=== PATIENT | female | born 1985 | race Caucasian/White ===

== ENCOUNTER → 2017-12-06 | Outpatient (CLI) | payer BC ==
--- NOTE | 2017-12-06 13:49 | Diagnostic Imaging Report ---
PROCEDURE: US Non-ob pelvis comp/trans. TECHNIQUE: Multiple realtime grayscale images were obtained of the pelvis in various projections endovaginally. Transabdominal imaging was also performed. INDICATION: Left lower quadrant pain. FINDINGS: The uterus measures 7.7 x 4.0 x 3.1 cm. Endometrium is 3 mm in thickness. No myometrial mass is seen. The right ovary measures 3.2 x 2.3 x 2.0 cm and the left ovary measures 3.6 x 2.1 x 2.3 cm. There is blood flow to both ovaries. No adnexal mass is seen. Small amount of free fluid is present, likely physiologic. IMPRESSION: Unremarkable pelvic ultrasound. Dictated by: Dictated on workstation # [id number]
== END ==
LOC: EDBD 12:38 → RAD 12:38
PROVIDERS: ATTEND Nurse Practitioner Family
DX: R10.32 Left lower quadrant pain (principal)
CPT/HCPCS: 76830; 76856

== ENCOUNTER → 2018-05-29 | Outpatient (CLI) | payer BC ==
--- NOTE | 2018-05-29 15:20 | Diagnostic Imaging Report ---
INDICATION: survey. TECHNIQUE: Multiple real-time grayscale images were obtained over the gravid uterus. COMPARISON: There are no prior studies available for comparison. FINDINGS: There is a single live fetus in variable presentation. heart motion was noted and a rate of 126 BPM was recorded. There were no abnormalities identified. However, the spine and four-chamber heart view were not optimally visualized. I would recommend that a short-term (4-6 week) followup exam be performed for further study. The placenta is anterior and there is no previa. The amniotic fluid volume is within normal limits. The cervix was identified and measures 6.1 cm in length. The growth parameters are fairly uniform. IMPRESSION: 1. There is a single live fetus at approximately 22 weeks 2 days gestation +/-2 weeks. The EDC is September 30, 2018. 2. There were no abnormalities identified, although the spine and four-chamber heart view were not optimally visualized. Recommendations, as above. 3. The growth parameters are fairly uniform. Biometrical measurements are as follows: Biparietal 5.35 cm, age 22 weeks 2 days. Head circumference 19.92 cm, age 22 weeks 1 days. Abdominal circumference 17.03 cm, age 22 weeks 1 days. Femur length 3.78 cm, age 22 weeks 1 days. Sonographic estimate age: 22 weeks 2 days. Sonographic estimated date of delivery: 09/30/2018. Estimated Weight: 472 gm (+/- 69 gm). LMP percentile: 70%. heart rate: 126 beats per minute. number: 1 of 1. Dictated by: Dictated on workstation # [id number]
== END ==
LOC: RAD 13:02
PROVIDERS: ATTEND Obstetrics & Gynecology
DX: Z36.89 Encounter for other specified antenatal screening (principal); Z3A.22 22 weeks gestation of pregnancy
CPT/HCPCS: 76805

== ENCOUNTER → 2018-09-04 | Outpatient (CLI) | payer BC ==
[~2018-09-04] MED LIST: ACET-77 PO; CALC-308 PO; DIBU30OI TOP; IBUP-844 PO; OMEG-160 PO; PREN-53 PO
[2018-10-09 23:06] LABS: URINE CREATININE FOR RATIO 30 MG/DL (30-125); URINE PROTEIN FOR RATIO ONLY < 6 MG/DL (6-12)
== END ==
LOC: LABNPT 17:00
PROVIDERS: ATTEND Obstetrics & Gynecology
DX: O13.3 Gestational [pregnancy-induced] hypertension without significant proteinuria, third trimester (principal)
CPT/HCPCS: 82570; 84156

== ENCOUNTER 2018-09-05 21:05 | Outpatient (CLI) | payer BC ==
[~2018-09-05] VITALS: Ht 175.3 cm; Wt 106.6 kg
--- NOTE | 2018-09-05 21:00 | NUR ---
SHELLI GUERRERO presented to unit via from ED, accompanied by S.O, with c/o LEAKING. SHELLI GUERRERO weighed, gowned, voided, and to bed. EFHM and TOCO applied, VS taken. SHELLI GUERRERO oriented to bed controls, call light, TV, heat, and A/C controls. Assessments to follow per this rn.
[2018-09-05] MEDS ORDERED: PREN-53 PO (21:30)
[2018-09-05] MEDS ORDERED: OMEG-160 PO (21:31)
[2018-09-05] MEDS ORDERED: CALC-308 PO (21:31)
[2018-09-05 21:52] VITALS: BP 139/85
--- NOTE | 2018-09-05 22:00 | NUR ---
Pt ambulatory off unit accompanied by s/o, no ss distress.
== END 2018-09-05 22:00 | disposition home or self-care (01) ==
LOC: WSo 21:05 → LDRP 21:05 → WSo 21:09
PROVIDERS: ATTEND Obstetrics & Gynecology
DX: Z03.71 Encounter for suspected problem with amniotic cavity and membrane ruled out (principal)
CPT/HCPCS: 99213

== ENCOUNTER → 2020-02-17 | Outpatient (CLI) | payer BC ==
[~2020-02-17] MED LIST changes: -ACET-77 PO; +ACET-78 PO
--- NOTE | 2020-02-17 17:46 | Diagnostic Imaging Report ---
Examination: Ultrasound pelvis. Date: February 17, 2020. Indication: 34-year-old female, right lower quadrant and suprapubic pain. Comparison: May 29, 2018. Technique: A sonogram of the pelvis was performed utilizing transabdominal and endovaginal approaches assessing sevilla-scale appearance and color Doppler flow. Findings: The uterus measures 7.8 x 3.8 x 4.9 cm. No focal uterine masses are seen. The endometrium measures 0.9 cm in diameter. The right ovary measures 3.6 cm x 2.2 cm x 2.5 cm. The left ovary measures 3.1 cm x 2.5 cm x 3.6 cm. There is a cystic lesion in the left adnexa measuring 2.2 x 2.6 x 1.9 cm in size with round internal peripherally echogenic foci. This appears to be likely arising from the left ovary. There is blood flow to both ovaries. No free pelvic fluid is demonstrated. Impression: 1. Complicated left ovarian cystic lesion which may relate to a complicated cyst. Ectopic is considered less likely as this likely is arising from the left ovary which would be an uncommon location for an ectopic . Correlation with laboratory values is recommended. 2. No free pelvic fluid. 3. Unremarkable appearance of the right ovary and uterus. Dictated by: Dictated on workstation # [id number]
== END ==
LOC: RAD 15:15
PROVIDERS: ATTEND Family Medicine
DX: N83.292 Other ovarian cyst, left side (principal)
CPT/HCPCS: 36415; 76830; 76856; 84702; 84703

== ENCOUNTER → 2021-01-13 | Outpatient (CLI) | payer BC ==
--- NOTE | 2021-01-13 15:36 | Diagnostic Imaging Report ---
INDICATION: survey. TECHNIQUE: Multiple real-time grayscale images were obtained over the gravid uterus. COMPARISON: None. FINDINGS: There is a single live fetus in a cephalic presentation. heart rate was recorded at 132 bpm. Placenta is anterior. Amniotic fluid volume is normal. survey shows kidneys, bladder and stomach to be unremarkable. brain is unremarkable. There is a four-chamber heart. There is a three-vessel cord with normal insertion. spine is unremarkable. Biometrical measurements are as follows: Biparietal 4.86 cm, age 20 weeks 5 days. Head circumference 17.71 cm, age 20 weeks 2 days. Abdominal circumference 15.30 cm, age 20 weeks 4 days. Femur length 3.21 cm, age 20 weeks 0 days. Sonographic estimate age: 20 weeks 3 days. Sonographic estimated date of delivery: 05/30/21. Estimated Weight: 344 gm (+/- 51 gm). LMP percentile: 84%. heart rate: 132 beats per minute. number: 1 of 1. IMPRESSION: Single live IUP 20 weeks 3 days gestational age. Estimated date of confinement sonographically is 05/30/2021. Dictated by: Dictated on workstation # [id number]
== END ==
LOC: RAD 12:00
PROVIDERS: ATTEND Obstetrics & Gynecology
DX: Z36.9 Encounter for antenatal screening, unspecified (principal); Z3A.20 20 weeks gestation of pregnancy
CPT/HCPCS: 76805

== ENCOUNTER 2021-05-25 16:29 | Inpatient (IN) | payer BC ==
[~2021-05-25] VITALS: Ht 175.3 cm; Wt 96.3 kg
[2021-05-25 16:57] VITALS: BP 132/94
[2021-05-25] MEDS ORDERED: LACTATED RINGERS 1,000 ML IV SCH (17:00)
[2021-05-25] MEDS ORDERED: MINERAL OIL 30 ML OIL TOP PRN (17:00)
[2021-05-25] MEDS ORDERED: TERBUTALINE INJ 1 MG/ML (BRETHINE) AMP SC PRN (17:00)
--- NOTE | 2021-05-25 17:12 | History & Physical-OB ---
OB - Chief Complaint & HPI Date/Time Date of Admission: Date of Admission: May 25, 2021 at 16:29 Date seen by a Provider: May 25, 2021 Time Seen by a Provider: 15:30 Chief Complaint/History OB-Reason for Admission/Chief: Induction of Labor Hx : 3 Hx Para: 1011 Expected Date of Delivery: Jun 05, 2021 Gestational Age in Weeks: 38 Gestational Age in Days: 2 Indication for induction: medical complication (gestational hypertension) Other reason for admission: Have been monitoring her blood pressures the last few weeks. 151/96 and 150/105 in clinic today. More edema today. no proteinuria. No headache or blurred vision. Sent to labor and delivery for induction. Admission Nurse Assessment Rev: Yes History of Labs A+/- HIV -\ HBsAg - Hep C - VDRL NR Rub I GBS - Allergies and Home Medications Allergies Coded Allergies: No Known Drug Allergies (Unverified , 09/16/18) Patient Home Medication List Home Medication List Reviewed: Yes Magnesium (Magnesium) 200 Mg Tablet, 800 MG PO DAILY, (Reported) Entered as Reported by: BENSON YOUNGBLOOD on 05/25/211750 Last Action: New Order [place]-3/Dha/Epa/Fish Oil (Fish Oil 1,000 mg Softgel) 1 Each Capsule, 1 EACH PO DAILY, (Reported) Entered as Reported by: KAYLEE SPARROW on 09/05/182130 Last Action: Reviewed Fck906/Iron Fumarate/FA/Dss ( 19 Tablet) 1 Each Tablet, 1 EACH PO DAILY, (Reported) Entered as Reported by: KAYLEE SPARROW on 09/05/182129 Last Action: Reviewed Vitamin D (Vitamin D3) 10 Mcg Tablet, 400 MCG PO DAILY, (Reported) Entered as Reported by: BENSON YOUNGBLOOD on 05/25/211751 Last Action: New Order Discontinued Medications Acetaminophen (Acetaminophen) 500 Mg Tablet, 1,000 MG PO Q8HR Discontinued Reason: No Longer Taking Prescribed by: KEVEN HINOJOSA on 09/19/18 0638 Last Action: Discontinued Calcium Carbonate (Calcium) 500 Mg Tab.chew, 500 MG PO DAILY, (Reported) Discontinued Reason: No Longer Taking Entered as Reported by: KAYLEE SPARROW on 09/05/182130 Last Action: Discontinued Dibucaine (Dibucaine) 30 Gm Oint, 0 GM TOP UD PRN for PAIN- SEE INSTRUCTIONS Discontinued Reason: No Longer Taking Prescribed by: KEVEN HINOJOSA on 09/19/18637 Last Action: Discontinued Ibuprofen (Ibu) 600 Mg Tablet, 600 MG PO Q6HR Discontinued Reason: No Longer Taking Prescribed by: KEVEN HINOJOSA on 09/19/18637 Last Action: Discontinued OB - History Hx of Present Ultrasounds: Normal mid trimester US Obstetrical Complications: Gestational Hypertension Medical Complications: None Information Induced Hypertension: Yes Maternal Gestational Diabetes: No Hemorrhage: No Obstetrical History Hx : 3 Hx Para: 1 Hx # Term Pregnancies: 1 Hx # Pregnancies: 0 Number of Living Children: 1 Hx Termination: No Hx Total # of Abortions (Spona: 1 Hx Multiple Gestation: No Hx Ectopic : No Hx Stillbirth: No Hx Complication: No Hx Induced Hypertens: Yes Hx Maternal Gestational Diabet: No Hx Hemorrhage: No Delivery History Hx Dystocia: No Hx Forceps Assisted Delivery: No Hx Vacuum Extraction Assisted: No Hx Placenta Abnormality: No Hx Distress: No Hx Large For Gestational Age I: No Hx Small for Gestational Age I: No Hx Section: No Hx Vaginal Delivery Post C-Sec: No Adverse Rxn to Tranfusion: No Patient Past Medical History hypertension Social History/Family History Alcohol Use: Denies Use Recreational Drug Use: No Smoking Cessation: Never smoker Immunizations Influenza Vaccine Up-to-Date: Yes; Up-to-Date (01/19) Hepatitis A: Yes Hepatitis B: Yes Tetanus Booster (TDap): Less than 5yrs (04/2021) Rubella: immune RPR/VDRL: Negative GBS Status: Negative HBsAG: Negative OB - Admission Exam Physical Exam HEENT: NCAT Heart: Rhythm Normal Lungs: Clear Abdomen: Gravid Extremities: Edema Reflexes: Hyperreflexia Present Cervical Dilatation: 4cm Effacement: 50% Station: Ballotable Membranes: Intact Heart Rate: 130's Accelerations: Accelerations Present Decelerations: No Decelerations Short Term Variability: Present Web Interface Developer Variability: Average (6-25) Contractions on Admission: >10 Minutes Apart OB - Assessment/Plan/Diagnosis Assessment Assessment: induction of labor Admission Dx 38 week gestation Gestational hypertension Rh - Admission Status: Inpatient Order (span 2 midnights) Reason for Inpatient Admission: labor Plan Plan: Induction Induction Method: per Misoprostol Protocol (anticipate Greg Carney) KEVEN HINOJOSA DO May 25, 2021 17:12
[2021-05-25 17:26] LABS: BASOPHILS # (AUTO) 0.1 10^3/uL (0.0-0.1); BASOPHILS % (AUTO) 0 % (0-10); EOSINOPHILS # (AUTO) 0.1 10^3/uL (0.0-0.3); EOSINOPHILS % (AUTO) 0 % (0-10); HEMATOCRIT 38 % (35-52); HEMOGLOBIN 12.6 g/dL (11.5-16.0); LYMPHOCYTES # (AUTO) 3.8 10^3/uL (1.0-4.0); LYMPHOCYTES % (AUTO) 22 % (12-44); MEAN CORPUSCULAR HEMOGLOBIN 29 pg (25-34); MEAN CORPUSCULAR HGB CONC 33 g/dL (32-36); MEAN CORPUSCULAR VOLUME 87 fL (80-99); MEAN PLATELET VOLUME 10.3 fL (9.0-12.2); MONOCYTES # (AUTO) 1.1 10^3/uL (0.0-1.0); MONOCYTES % (AUTO) 7 % (0-12); NEUTROPHILS % (AUTO) 70 % (42-75); PLATELET COUNT 259 10^3/uL (130-400); WHITE BLOOD COUNT 17.2 10^3/uL (4.3-11.0)
[2021-05-25 17:34] LABS: ALBUMIN 3.4 GM/DL (3.2-4.5)
[2021-05-25 17:35] LABS: POTASSIUM 3.9 MMOL/L (3.6-5.0)
[2021-05-25 17:35] LABS: BILIRUBIN,URINE NEGATIVE (NEGATIVE); CLARITY,URINE CLEAR; COLOR,URINE YELLOW; GLUCOSE, URINE (UA) NEGATIVE (NEGATIVE); KETONES,URINE NEGATIVE (NEGATIVE); LEUKOCYTE ESTERASE ,URINE NEGATIVE (NEGATIVE); NITRITE,URINE NEGATIVE (NEGATIVE); PROTEIN,URINE NEGATIVE (NEGATIVE)
[2021-05-25 17:36] LABS: CALCIUM 8.8 MG/DL (8.5-10.1)
[2021-05-25 17:37] LABS: TOTAL PROTEIN 6.7 GM/DL (6.4-8.2)
[2021-05-25 17:39] LABS: BILIRUBIN,TOTAL 0.2 MG/DL (0.1-1.0)
[2021-05-25 17:41] LABS: CREATININE SERUM 0.82 MG/DL (0.60-1.30)
[2021-05-25 17:44] LABS: URIC ACID 5.1 MG/DL (2.6-7.2)
[2021-05-25 17:46] LABS: BACTERIA,URINE TRACE /HPF; SQUAMOUS EPITHELIAL CELL,UR 0-2 /HPF; URINE CREATININE FOR RATIO 14 MG/DL (30-125)
[2021-05-25 17:47] LABS: BAND NEUTROPHILS 0 %; BASOPHILS % (MANUAL) 0 %; EOSINOPHILS % (MANUAL) 1 %; LYMPHOCYTES % (MANUAL) 25 %; MONOCYTES % (MANUAL) 8 %; NEUTROPHILS % (MANUAL) 66 %; RBC MORPH NORMAL
[2021-05-25 17:47] LABS: URINE PROTEIN FOR RATIO ONLY < 6 MG/DL (6-12)
[2021-05-25] MEDS ORDERED: MAGN200T PO (17:51)
[2021-05-25] MEDS ORDERED: NF-VITD400 PO (17:52)
[2021-05-25] MEDS: D5 LR IV SOLUTION 1,000 ML IV SCH (18:48)
[2021-05-25] MEDS ORDERED: CATHETER FLUSH 10 ML SYR IV SCH (22:00)
[2021-05-26] VITALS (65 sets, daily range): BP systolic 96–180; BP diastolic 53–125
[2021-05-26] MEDS: D5 LR IV SOLUTION 1,000 ML IV SCH ×3 (02:59→19:00)
--- NOTE | 2021-05-26 08:44 | OB Triage Report ---
Standard Progress Note Progress Notes/Assess & Plan Date Seen by a Provider: May 26, 2021 Time Seen by a Provider: 08:30 Expected Date of Delivery: Jun 05, 2021 Gestational Age in Weeks: 38 Gestational Age in Days: 3 LMP/HELEN Comment: Induction due to hypertension at 38 + weeks Progress/Assessment & Plan admitted from clinic yesterday due to elevated blood pressures at term. BP in the office 150/100 and 142/105 VS - Last 72 Hours, by Label 05/25/21 05/26/21 05/26/21 16:57 02:30 06:07 Temp 37.0 36.6 36.8 Pulse 100 81 78 Resp 16 16 B/P (MAP) 132/94 (107) 141/93 (109) 132/73 (92) O2 Delivery Room Air Laboratory Tests Test 05/25/21 17:05 05/25/21 17:20 Range/Units White Blood Count 17.2 H 4.3-11.0 10^3/uL Red Blood Count 4.36 3.80-5.11 10^6/uL Hemoglobin 12.6 11.5-16.0 g/dL Hematocrit 38 35-52 % Mean Corpuscular Volume 87 80-99 fL Mean Corpuscular Hemoglobin 29 25-34 pg Mean Corpuscular Hemoglobin Concent 33 32-36 g/dL Red Cell Distribution Width 12.3 10.0-14.5 % Platelet Count 259 130-400 10^3/uL Mean Platelet Volume 10.3 9.0-12.2 fL Immature Granulocyte % (Auto) 1 % Neutrophils (%) (Auto) 70 42-75 % Lymphocytes (%) (Auto) 22 12-44 % Monocytes (%) (Auto) 7 0-12 % Eosinophils (%) (Auto) 0 0-10 % Basophils (%) (Auto) 0 0-10 % Neutrophils # (Auto) 12.0 H 1.8-7.8 10^3/uL Lymphocytes # (Auto) 3.8 1.0-4.0 10^3/uL Monocytes # (Auto) 1.1 H 0.0-1.0 10^3/uL Eosinophils # (Auto) 0.1 0.0-0.3 10^3/uL Basophils # (Auto) 0.1 0.0-0.1 10^3/uL Immature Granulocyte # (Auto) 0.1 0.0-0.1 10^3/uL Neutrophils % (Manual) 66 % Lymphocytes % (Manual) 25 % Monocytes % (Manual) 8 % Eosinophils % (Manual) 1 % Basophils % (Manual) 0 % Band Neutrophils 0 % Blood Morphology Comment NORMAL Sodium Level 138 135-145 MMOL/L Potassium Level 3.9 3.6-5.0 MMOL/L Chloride Level 108 H 98-107 MMOL/L Carbon Dioxide Level 17 L 21-32 MMOL/L Anion Gap 13 5-14 MMOL/L Blood Urea Nitrogen 10 7-18 MG/DL Creatinine 0.82 0.60-1.30 MG/DL Estimat Glomerular Filtration Rate 97 BUN/Creatinine Ratio 12 Glucose Level 107 H 70-105 MG/DL Uric Acid 5.1 2.6-7.2 MG/DL Calcium Level 8.8 8.5-10.1 MG/DL Corrected Calcium 9.3 8.5-10.1 MG/DL Total Bilirubin 0.2 0.1-1.0 MG/DL Aspartate Amino Transf (AST/SGOT) 23 5-34 U/L Alanine Aminotransferase (ALT/SGPT) 17 0-55 U/L Alkaline Phosphatase 106 40-136 U/L Lactate Dehydrogenase 205 125-220 U/L Total Protein 6.7 6.4-8.2 GM/DL Albumin 3.4 3.2-4.5 GM/DL Urine Color YELLOW Urine Clarity CLEAR Urine pH 6.0 5-9 Urine Specific [place] <=1.005 1.016-1.022 Urine Protein NEGATIVE NEGATIVE Urine Glucose (UA) NEGATIVE NEGATIVE Urine Ketones NEGATIVE NEGATIVE Urine Nitrite NEGATIVE NEGATIVE Urine Bilirubin NEGATIVE NEGATIVE Urine Urobilinogen 0.2 < = 1.0 MG/DL Urine Leukocyte Esterase NEGATIVE NEGATIVE Urine RBC (Auto) NEGATIVE NEGATIVE Urine RBC NONE /HPF Urine WBC NONE /HPF Urine Squamous Epithelial Cells 0-2 /HPF Urine Crystals NONE /LPF Urine Bacteria TRACE /HPF Urine Casts NONE /LPF Urine Mucus NEGATIVE /LPF Urine Culture Indicated NO Urine Creatinine 14 L 30-125 MG/DL Urine Protein/Creatinine Ratio Received misoprostol x 1, (50 mcg) and then was sendy regularly so no additional dose was given. She has walked and has done well. Currently rare contractions category 1 strip SVE 4-5/50/-2 but anterior. and head is applied (was posterior and not applied yesterday) AROM, clear Plan augmentation as indicated. Epidural when desired Anticipate Final Diagnosis 38 week gestation gestational hypertension KEVEN HINOJOSA DO May 26, 2021 08:44
[2021-05-26] MEDS ORDERED: OXYTOCIN PRE-MIX DRIP 500 ML IV SCH ×2 (11:00→15:15)
[2021-05-26] MEDS ORDERED: fentaNYL 2 mcg/ml BUPIVA 0.125 100 ML ONE (12:06)
[2021-05-26] MEDS ORDERED: BUPIVACAINE 0.25% 30 ML (SENSORCAINE) VIAL ONE (12:43)
[2021-05-26] MEDS ORDERED: fentaNYL INJ 100 MCG/2 ML AMP ONE (12:43)
[2021-05-26] MEDS ORDERED: EPIDURAL (fentaNYL 2 MCG/ML BUPIVA 0.125%)100 ML BAG EPI PRN (12:45)
[2021-05-26] MEDS ORDERED: NALOXONE 0.4 MG/ML 1 ML (NARCAN) VIAL IV PRN ×2 (12:45→15:15)
[2021-05-26] MEDS ORDERED: LACTATED RINGERS 1,000 ML IV SCH (12:45)
[2021-05-26] MEDS ORDERED: ONDANSETRON 4 MG/2 ML (SDV) Z0FRAN IV PRN (12:45)
[2021-05-26] MEDS ORDERED: diphenhydrAMINE 50 MG/ML INJ (BENADRYL) IV PRN (12:45)
[2021-05-26] MEDS ORDERED: LIDOCAINE 1% INJ 50 ML (XYLOCAINE) VIAL ONE (14:36)
[2021-05-26] MEDS ORDERED: LIDOCAINE/EPI 2% 1:200,00 (XYLOCAINE) 10 ML VIAL ONE (14:37)
[2021-05-26] MEDS ORDERED: IBUP-844 PO (15:06)
[2021-05-26] MEDS ORDERED: ACET-93 PO (15:06)
--- NOTE | 2021-05-26 15:07 | Discharge Inst-Women's Service ---
Discharge Inst-Women's Serv Depart Medication/Instructions New, Converted or Re-Newed RX: Transmitted to Pharmacy Final Diagnosis gestational hypertension 38 week gestation Problems Reviewed?: Yes Consults/Follow Up Additional Follow Up: Yes (6 weeks ) Activity Activity: Activity as Tolerated Driving Instructions: You May Drive NO SMOKING: NO SMOKING Nothing Inside Vagina: No Douching, No [place], No Tampons Diet Discharge Diet: No Restrictions Symptoms to Report to : Swelling Increased, Bleeding Excessive, Pain Increased, Fever Over 101 Degrees F, Vaginal Bleeding Increase, Cramps in Feet or Legs, Vaginal Discharge Foul For Any Problems or Questions: Contact Your Physician KEVEN HINOJOSA DO May 26, 2021 15:07
[2021-05-26] MEDS ORDERED: BENZOCAINE/MENTHOL (DERMOPLAST) 56 ML CAN TP PRN (15:15)
[2021-05-26] MEDS ORDERED: WITCH HAZEL(TUCKS) 40 EA JAR TOP PRN (15:15)
[2021-05-26] MEDS ORDERED: MEASLES,MUMPS,RUBELLA 1 EA INJ SQ ONE (15:15)
[2021-05-26] MEDS ORDERED: TETANUS,DIPTH,PERTUSS P/F (BOOSTRIX) 0.5 ML VIAL IM ONE (15:15)
[2021-05-26] MEDS: ZOLPIDEM 5 MG (AMBIEN) TAB PO SCH ×2 (19:47→21:00)
[2021-05-26] MEDS: IBUPROFEN 600 MG (MOTRIN) TAB PO SCH (21:01)
[2021-05-26] MEDS: DOCUSATE SODIUM 100 MG (COLACE) CAP PO SCH (21:01)
[2021-05-26] MEDS ORDERED: CATHETER FLUSH 10 ML SYR IV SCH (22:00)
[2021-05-26] MEDS: ACETAMINOPHEN 500 MG TAB (TYLENOL) PO SCH (22:00)
[2021-05-27 02:00] VITALS: BP 140/81
[2021-05-27] MEDS: IBUPROFEN 600 MG (MOTRIN) TAB PO SCH ×4 (04:27→21:02)
[2021-05-27 05:00] VITALS: BP 147/84
[2021-05-27 05:29] LABS: BASOPHILS % (AUTO) 0 % (0-10); EOSINOPHILS # (AUTO) 0.1 10^3/uL (0.0-0.3); EOSINOPHILS % (AUTO) 1 % (0-10); HEMATOCRIT 33 % (35-52); HEMOGLOBIN 10.8 g/dL (11.5-16.0); LYMPHOCYTES # (AUTO) 4.5 10^3/uL (1.0-4.0); LYMPHOCYTES % (AUTO) 29 % (12-44); MEAN CORPUSCULAR HEMOGLOBIN 30 pg (25-34); MEAN CORPUSCULAR HGB CONC 33 g/dL (32-36); MEAN CORPUSCULAR VOLUME 90 fL (80-99); MEAN PLATELET VOLUME 10.3 fL (9.0-12.2); MONOCYTES % (AUTO) 7 % (0-12); NEUTROPHILS # (AUTO) 9.7 10^3/uL (1.8-7.8); NEUTROPHILS % (AUTO) 63 % (42-75); PLATELET COUNT 199 10^3/uL (130-400); WHITE BLOOD COUNT 15.5 10^3/uL (4.3-11.0)
[2021-05-27 09:00] VITALS: BP 136/78
[2021-05-27] MEDS: FERROUS SULF 325 MG (IRON) TAB PO SCH (09:04)
[2021-05-27] MEDS: DOCUSATE SODIUM 100 MG (COLACE) CAP PO SCH ×2 (09:04→21:02)
[2021-05-27] MEDS: ACETAMINOPHEN 500 MG TAB (TYLENOL) PO SCH ×2 (09:05→17:31)
[2021-05-27] MEDS: PRENATAL VITAMIN 1 EA TAB PO SCH (09:05)
[2021-05-27] MEDS ORDERED: MEASLES,MUMPS,RUBELLA 1 EA INJ ONE (09:14)
--- NOTE | 2021-05-27 10:50 | Postpartum Progress Note ---
Note Note Day # 1 Subjective: Patient is without complaints. Ambulating, voiding. Tolerating a regular diet without nausea or vomiting. Normal lochia. Pain is well controlled with oral pain medications. She is , pumping and bottlfeeding. Objective: Vital Signs 05/26/21 05/27/21 14:36 05:00 Temp 36.8 Pulse 71 Resp 18 B/P (MAP) 147/84 (105) Pulse Ox 98 O2 Delivery Room Air O2 Flow Rate 15.00 Physical Exam: General - Alert and oriented, no apparent distress Abdomen - Soft, appropriately tender to palpation, non-distended, fundus firm at umbilicus Extremities - No edema, negative Jessie's bilaterally Assessment: Post- day # 1, status post vaginal delivery due to gestational hypertension. Recovering well, hemodynamically stable Plan: Routine care. GHTN: BP range is the followin-147/66-83. Will continue to monitor and consider starting labetalol 100mg BID to control blood pressures in period. VMI, Circ desired. Encourage breast feeding. Heme: Preop hgb 12.6 --> postop hgb 10.8. Vitals stable. No s/s of anemia. Ferrous sulfate supplementation. VTE ppx: Encourage ambulation. Plan for discharge tomorrow. Vitals - Labs Vital Signs - I&O Vital Signs Date Time Temp Pulse Resp B/P (MAP) Pulse Ox O2 Delivery O2 Flow Rate FiO2 05/27/21 05:00 36.8 71 18 147/84 (105) 98 Room Air 05/27/21 02:00 36.5 72 18 140/81 (100) 97 Room Air 05/26/21 21:00 36.8 99 18 156/88 (110) 97 Room Air 05/26/21 17:03 36.7 76 18 137/83 (101) Room Air 05/26/21 16:37 96 18 104/57 (73) Room Air 05/26/21 16:06 76 18 143/74 (97) Room Air 05/26/21 15:30 36.6 88 18 171/69 (103) Room Air 05/26/21 15:27 86 18 143/79 (100) Room Air 05/26/21 15:23 36.9 87 18 131/62 (85) Room Air 05/26/21 15:20 89 18 132/57 (82) Room Air 05/26/21 15:16 96 18 168/92 (117) Room Air 05/26/21 15:10 98 18 180/125 (143) Room Air 05/26/21 15:04 117 18 122/71 (88) Room Air 05/26/21 14:58 98 18 143/68 (93) Room Air 05/26/21 14:55 96 18 154/74 (100) Room Air 05/26/21 14:52 36.5 103 18 155/75 (101) Room Air 05/26/21 14:49 110 18 152/67 (95) Room Air 05/26/21 14:36 114 18 155/97 (116) Non Rebreather 15.00 05/26/21 14:33 100 18 147/90 (109) Non Rebreather 15.00 05/26/21 14:30 102 18 135/89 (104) Non Rebreather 15.00 05/26/21 14:28 96 18 143/85 (104) 91 Non Rebreather 15.00 05/26/21 14:24 99 18 170/98 (122) 100 Non Rebreather 15.00 05/26/21 14:22 91 18 139/78 (98) 100 Non Rebreather 15.00 05/26/21 14:19 87 18 156/89 (111) 100 Non Rebreather 15.00 05/26/21 14:16 65 18 132/80 (97) Non Rebreather 15.00 05/26/21 14:13 66 18 128/78 (95) 100 Non Rebreather 15.00 05/26/21 14:10 69 18 135/79 (97) Non Rebreather 15.00 05/26/21 14:07 70 18 132/77 (95) 100 Non Rebreather 15.00 05/26/21 14:04 71 18 134/85 (101) 100 Non Rebreather 15.00 05/26/21 14:01 69 18 132/83 (99) Non Rebreather 15.00 05/26/21 13:58 35.5 78 18 137/87 (104) 100 Non Rebreather 15.00 05/26/21 13:54 75 18 136/80 (98) 100 Non Rebreather 15.00 05/26/21 13:51 91 18 132/78 (96) 100 Non Rebreather 15.00 05/26/21 13:40 71 18 119/63 (81) 100 Non Rebreather 15.00 05/26/21 13:36 82 18 107/59 (75) 100 Non Rebreather 15.00 05/26/21 13:33 59 18 107/60 (76) 100 Non Rebreather 15.00 05/26/21 13:30 60 18 113/61 (78) 100 Non Rebreather 15.00 05/26/21 13:27 82 18 131/70 (90) 100 Non Rebreather 15.00 05/26/21 13:25 81 18 131/70 (90) Non Rebreather 15.00 05/26/21 13:22 87 18 115/59 (77) 100 Non Rebreather 15.00 05/26/21 13:17 56 18 99/58 (72) Room Air 05/26/21 13:15 59 18 99/55 (70) 100 Room Air 05/26/21 13:12 60 18 96/53 (67) 100 Room Air 05/26/21 13:10 69 18 110/57 (74) Room Air 05/26/21 13:07 69 18 119/76 (90) 100 Room Air 05/26/21 13:02 89 18 126/80 (95) 100 Room Air 05/26/21 12:57 86 18 168/85 (112) 100 Room Air 05/26/21 12:54 77 18 160/69 (99) 100 Room Air 05/26/21 12:40 36.5 89 18 172/89 (116) 100 Room Air 05/26/21 12:24 76 18 156/110 (125) Room Air 05/26/21 12:07 70 18 143/95 (111) Room Air 05/26/21 11:54 73 18 151/93 (112) Room Air 05/26/21 11:39 72 18 137/93 (108) Room Air 05/26/21 11:24 73 18 129/82 (98) Room Air 05/26/21 11:08 70 18 125/81 (96) Room Air 05/26/21 10:53 65 18 127/83 (98) Room Air I & O 05/27/21 07:00 Intake Total 3750 ml Balance 3750 ml Labs Laboratory Tests 05/27/21 05:13: White Blood Count 15.5H, Red Blood Count 3.64L, Hemoglobin 10.8L, Hematocrit 33L , Mean Corpuscular Volume 90, Mean Corpuscular Hemoglobin 30, Mean Corpuscular Hemoglobin Concent 33, Red Cell Distribution Width 12.3, Platelet Count 199, Mean Platelet Volume 10.3, Immature Granulocyte % (Auto) 1, Neutrophils (%) (Auto) 63, Lymphocytes (%) (Auto) 29, Monocytes (%) (Auto) 7, Eosinophils (%) (Auto) 1, Basophils (%) (Auto) 0, Neutrophils # (Auto) 9.7H, Lymphocytes # (Auto) 4.5H, Monocytes # (Auto) 1.0, Eosinophils # (Auto) 0.1, Basophils # (Auto) 0.0, Immature Granulocyte # (Auto) 0.1 Microbiology 05/25/21 Urine Culture - Preliminary, Resulted Slight Growth Present ELSA SILVERIO MD May 27, 2021 10:50
[2021-05-27] MEDS ORDERED: NORE0.3536 PO (10:51)
--- NOTE | 2021-05-27 11:46 | Anesthesia-Regional Post-Op ---
Regional Patient Condition Mental Status: Alert, Oriented x3 Circulation: Same as Pre-Op Headache: Absent Sensation: Full Recovery Motor Block: Absent Post Op Complications Complications None Follow Up Care/Instructions Patient Instructions None needed. Anesthesia/Patient Condition Patient is doing well, no complaints, stable vital signs, no apparent adverse anesthesia problems. No complications reported per nursing. D/C home per [facility] [place] Criteria: Yes WAYLON NEVAREZ CRNA May 27, 2021 11:46
[2021-05-27 12:10] VITALS: BP 145/80
[2021-05-27 17:29] VITALS: BP 157/82
[2021-05-27 21:05] VITALS: BP 147/81
[2021-05-27] MEDS: ZOLPIDEM 5 MG (AMBIEN) TAB PO SCH (21:58)
[2021-05-28 02:30] VITALS: BP 154/94
[2021-05-28] MEDS: ACETAMINOPHEN 500 MG TAB (TYLENOL) PO SCH (06:35)
[2021-05-28] MEDS: PRENATAL VITAMIN 1 EA TAB PO SCH (06:35)
[2021-05-28] MEDS: IBUPROFEN 600 MG (MOTRIN) TAB PO SCH ×2 (06:35→13:02)
[2021-05-28 09:07] VITALS: BP 158/104
[2021-05-28] MEDS: FERROUS SULF 325 MG (IRON) TAB PO SCH (09:09)
[2021-05-28] MEDS: DOCUSATE SODIUM 100 MG (COLACE) CAP PO SCH (09:10)
[2021-05-28] MEDS ORDERED: LABETALOL 200 MG (NORMODYNE) TAB PO NR (09:15)
--- NOTE | 2021-05-28 10:11 | Postpartum Progress Note ---
Note Note Day # 2 Subjective: Patient is without complaints. Ambulating, voiding. Tolerating a regular diet without nausea or vomiting. Normal lochia. Pain is well controlled with oral pain medications. , bottlefeeding and pumping. She denies ROJAS, blurry vision, SOB, chest pain, and RUQ abdominal pain. She anticipates discharge home today. Objective: VS - Last 72 Hours, by Label 05/25/21 05/26/21 05/26/21 05/26/21 16:57 02:30 06:07 08:36 Temp 37.0 36.6 36.8 37.0 Pulse 100 81 78 83 Resp 16 16 18 B/P (MAP) 132/94 (107) 141/93 (109) 132/73 (92) 140/83 (102) O2 Delivery Room Air Room Air 05/26/21 05/26/21 05/26/21 05/26/21 08:53 09:08 09:23 09:38 Pulse 84 96 69 66 Resp 18 18 18 18 B/P (MAP) 134/79 (97) 124/73 (90) 132/83 (99) 133/79 (97) O2 Delivery Room Air Room Air Room Air Room Air 05/26/21 05/26/21 05/26/21 05/26/21 09:54 10:08 10:23 10:38 Pulse 68 67 75 Resp 18 18 18 18 B/P (MAP) 109/66 (80) 101/59 (73) 127/78 (94) 131/80 (97) O2 Delivery Room Air Room Air Room Air Room Air 05/26/21 05/26/21 05/26/21 05/26/21 10:53 11:08 11:24 11:39 Pulse 65 70 73 72 Resp 18 18 18 18 B/P (MAP) 127/83 (98) 125/81 (96) 129/82 (98) 137/93 (108) O2 Delivery Room Air Room Air Room Air Room Air 05/26/21 05/26/21 05/26/21 05/26/21 11:54 12:07 12:24 12:40 Temp 36.5 Pulse 73 70 76 89 Resp 18 18 18 18 B/P (MAP) 151/93 (112) 143/95 (111) 156/110 (125) 172/89 (116) Pulse Ox 100 O2 Delivery Room Air Room Air Room Air Room Air 05/26/21 05/26/21 05/26/21 05/26/21 12:54 12:57 13:02 13:07 Pulse 77 86 89 69 Resp 18 18 18 18 B/P (MAP) 160/69 (99) 168/85 (112) 126/80 (95) 119/76 (90) Pulse Ox 100 100 100 100 O2 Delivery Room Air Room Air Room Air Room Air 05/26/21 05/26/21 05/26/21 05/26/21 13:10 13:12 13:15 13:17 Pulse 69 60 59 56 Resp 18 18 18 18 B/P (MAP) 110/57 (74) 96/53 (67) 99/55 (70) 99/58 (72) Pulse Ox 100 100 O2 Delivery Room Air Room Air Room Air Room Air 05/26/21 05/26/21 05/26/21 05/26/21 13:22 13:25 13:27 13:30 Pulse 87 81 82 60 Resp 18 18 18 18 B/P (MAP) 115/59 (77) 131/70 (90) 131/70 (90) 113/61 (78) Pulse Ox 100 100 100 O2 Delivery Non Rebreather Non Rebreather Non Rebreather Non Rebreather O2 Flow Rate 15.00 15.00 15.00 15.00 05/26/21 05/26/21 05/26/21 05/26/21 13:33 13:36 13:40 13:51 Pulse 59 82 71 91 Resp 18 18 18 18 B/P (MAP) 107/60 (76) 107/59 (75) 119/63 (81) 132/78 (96) Pulse Ox 100 100 100 100 O2 Delivery Non Rebreather Non Rebreather Non Rebreather Non Rebreather O2 Flow Rate 15.00 15.00 15.00 15.00 05/26/21 05/26/21 05/26/21 05/26/21 13:54 13:58 14:01 14:04 Temp 35.5 Pulse 75 78 69 71 Resp 18 18 18 18 B/P (MAP) 136/80 (98) 137/87 (104) 132/83 (99) 134/85 (101) Pulse Ox 100 100 100 O2 Delivery Non Rebreather Non Rebreather Non Rebreather Non Rebreather O2 Flow Rate 15.00 15.00 15.00 15.00 05/26/21 05/26/21 05/26/21 05/26/21 14:07 14:10 14:13 14:16 Pulse 70 69 66 65 Resp 18 18 18 18 B/P (MAP) 132/77 (95) 135/79 (97) 128/78 (95) 132/80 (97) Pulse Ox 100 100 O2 Delivery Non Rebreather Non Rebreather Non Rebreather Non Rebreather O2 Flow Rate 15.00 15.00 15.00 15.00 05/26/21 05/26/21 05/26/21 05/26/21 14:19 14:22 14:24 14:28 Pulse 87 91 99 96 Resp 18 18 18 18 B/P (MAP) 156/89 (111) 139/78 (98) 170/98 (122) 143/85 (104) Pulse Ox 100 100 100 91 O2 Delivery Non Rebreather Non Rebreather Non Rebreather Non Rebreather O2 Flow Rate 15.00 15.00 15.00 15.00 05/26/21 05/26/21 05/26/21 05/26/21 14:30 14:33 14:36 14:49 Pulse 102 100 114 110 Resp 18 18 18 18 B/P (MAP) 135/89 (104) 147/90 (109) 155/97 (116) 152/67 (95) O2 Delivery Non Rebreather Non Rebreather Non Rebreather Room Air O2 Flow Rate 15.00 15.00 15.00 05/26/21 05/26/21 05/26/21 05/26/21 14:52 14:55 14:58 15:04 Temp 36.5 Pulse 103 96 98 117 Resp 18 18 18 18 B/P (MAP) 155/75 (101) 154/74 (100) 143/68 (93) 122/71 (88) O2 Delivery Room Air Room Air Room Air Room Air 05/26/21 05/26/21 05/26/21 05/26/21 15:10 15:16 15:20 15:23 Temp 36.9 Pulse 98 96 89 87 Resp 18 18 18 18 B/P (MAP) 180/125 (143) 168/92 (117) 132/57 (82) 131/62 (85) O2 Delivery Room Air Room Air Room Air Room Air 05/26/21 05/26/21 05/26/21 05/26/21 15:27 15:30 16:06 16:37 Temp 36.6 Pulse 86 88 76 96 Resp 18 18 18 18 B/P (MAP) 143/79 (100) 171/69 (103) 143/74 (97) 104/57 (73) O2 Delivery Room Air Room Air Room Air Room Air 05/26/21 05/26/21 05/27/21 05/27/21 17:03 21:00 02:00 05:00 Temp 36.7 36.8 36.5 36.8 Pulse 76 99 72 71 Resp 18 18 18 18 B/P (MAP) 137/83 (101) 156/88 (110) 140/81 (100) 147/84 (105) Pulse Ox 97 97 98 O2 Delivery Room Air Room Air Room Air Room Air 05/27/21 05/27/21 05/27/21 05/27/21 09:00 12:10 17:29 21:05 Temp 36.4 36.7 36.5 36.9 Pulse 75 74 79 68 Resp 18 18 18 18 B/P (MAP) 136/78 (97) 145/80 (101) 157/82 (107) 147/81 (103) Pulse Ox 98 98 97 O2 Delivery Room Air Room Air Room Air Room Air 05/28/21 05/28/21 02:30 09:07 Temp 36.9 36.4 Pulse 66 75 Resp 18 18 B/P (MAP) 154/94 (114) 158/104 (122) Pulse Ox 98 98 O2 Delivery Room Air Room Air BP range: 136-158/81-104, mostly 150s/90s Physical Exam: General - Alert and oriented, no apparent distress Abdomen - Soft, appropriately tender to palpation, non-distended, fundus firm at umbilicus Extremities - no edema, negative Jessie's bilaterally Assessment: [] post- day # [], status post [] vaginal delivery. Recovering well, hemodynamically stable Plan: Routine care. GHTN: BP range is the followin-158/81-104, mostly 150s/90s. Will start labetalol 100mg now with plans for BID dosing. Will increase to 200mg BID if patient's BP do not improve prior to discharge. PreE precautions reviewed. VMI, Circ completed. Encourage breast feeding. Heme: Preop hgb 12.6 --> postop hgb 10.8. Vitals stable. No s/s of anemia. F errous sulfate supplementation. VTE ppx: Encourage ambulation. Plan for discharge today with plans for BP check in 1 week. Appropriate precautions reviewed. Vitals - Labs Vital Signs - I&O Vital Signs Date Time Temp Pulse Resp B/P (MAP) Pulse Ox O2 Delivery O2 Flow Rate FiO2 05/28/21 09:07 36.4 75 18 158/104 (122) 98 Room Air 05/28/21 02:30 36.9 66 18 154/94 (114) 98 Room Air 05/27/21 21:05 36.9 68 18 147/81 (103) 97 Room Air 05/27/21 17:29 36.5 79 18 157/82 (107) Room Air 05/27/21 12:10 36.7 74 18 145/80 (101) 98 Room Air Labs Microbiology 05/25/21 Urine Culture - Final, Complete Lactobacillus species ELSA SILVERIO MD May 28, 2021 10:11
--- NOTE | 2021-05-28 10:18 | Short Stay Summary ---
Discharge Summary Hospital Course Was the Problem List Reviewed?: Yes Final Diagnosis: care following vaginal delivery Hospital Course Date of Admission: May 25, 2021 at 16:29 Admission Diagnosis : Family Physician/Provider: Gaby Watson DO Date of Discharge: 05/28/21 Discharge Diagnosis: care following vagina delivery, Gestational Hypertension, 38 weeks gestation Hospital Course: Nikki Colón is a 35 yo s/p who presented at 38w2d for IOL due to gestational hypertension. She delivered a viable male infant and tolerated the procedure well. Her course has been complicated by mildly elevated blood pressures requiring anti-hypertensive medication (labetalol 200mg BID) with adequate control of her blood pressures. She has had no symptoms of preeclampsia in the period. Her course was also complicated by acute blood loss anemia following her delivery that required FeSO4 supplementation. She was discharged home on PPD#2 in stable condition, meeting all milestones. She was breast and bottlefeeding prior to discharge and opted to start POPs at discharge. She is to follow-up in 1 week for a BP check in the office. Labs and Pending Lab Test: Microbiology 05/25/21 Urine Culture - Final, Complete Lactobacillus species Home Meds Active Ortho Micronor (Norethindrone) 0.35 Mg Tablet 0.35 Mg PO DAILY 30 Days Acetaminophen 500 Mg Tablet 1,000 Mg PO Q8HR Ibu (Ibuprofen) 600 Mg Tablet 600 Mg PO Q6HR Reported Vitamin D3 (Vitamin D) 10 Mcg Tablet 400 Mcg PO DAILY Magnesium 200 Mg Tablet 800 Mg PO DAILY Fish Oil 1,000 mg Softgel (Unity-3/Dha/Epa/Fish Oil) 1 Each Capsule 1 Each PO DAILY 19 Tablet (Ugx495/Iron Fumarate/FA/Dss) 1 Each Tablet 1 Each PO DAILY Assessment/Pt Instructions Patient is to follow-up in office in 1 week for a blood pressure check. Please see hospital course. Discharge Instructions Discharge Diet: No Restrictions Discharge Physical Examination Allergies: Coded Allergies: No Known Drug Allergies (Unverified , 09/16/18) Discharge Summary Date of Admission May 25, 2021 at 16:29 Date of Discharge ELSA SILVERIO MD May 28, 2021 10:18
[2021-05-28 10:40] VITALS: BP 152/88
[2021-05-28] MEDS ORDERED: LABETALOL 200 MG (NORMODYNE) TAB PO ONE (11:00)
[2021-05-28 12:09] VITALS: BP 141/81
[2021-05-28] MEDS ORDERED: LABE200T7 PO (12:40)
== END 2021-05-28 13:25 | disposition home or self-care (01) | DRG 806 ==
LOC: LDRP 16:29
PROVIDERS: ADMIT Obstetrics & Gynecology; ATTEND Obstetrics & Gynecology
PROC: 3E0DXGC Introduction of Other Therapeutic Substance into Mouth and Pharynx, External Approach (ICD-10-PCS; 2021-05-25)
PROC: 10E0XZZ Delivery of Products of Conception, External Approach (ICD-10-PCS; principal; 2021-05-26)
DX: O13.4 Gestational [pregnancy-induced] hypertension without significant proteinuria, complicating childbirth (principal); D62 Acute posthemorrhagic anemia; Z37.0 Single live birth; O90.81 Anemia of the puerperium; Z3A.38 38 weeks gestation of pregnancy; Z23 Encounter for immunization
CPT/HCPCS: 36415; 80053; 81000; 82570; 83615; 84156; 84550; 85007; 85025; 85027; 86850; 86900; 86901; 87088; 90707

== ENCOUNTER → 2022-01-26 | Outpatient (CLI) | payer BC ==
[~2022-01-26] MED LIST changes: +ACET-93 PO; +LABE200T10 PO; +MAGN200T PO; +NF-VITD400 PO; +NORE0.3536 PO
--- NOTE | 2022-01-26 14:59 | Diagnostic Imaging Report ---
INDICATION: Right thigh mass. Symptoms x4 months. Feels like it is increasing in size. EXAMINATION: Right lower extremity sonogram from 01/26/2022. FINDINGS: Grayscale and color Doppler ultrasound imaging of the right thigh at the site of palpable concern is performed. In the region, there is a large solid appearing mass which measures 12.3 x 4.9 x 5.9 cm. Some associated vascularity is noted. IMPRESSION: 1. Large slightly vascular solid lesion at the site of palpable concern. This is nonspecific sonographically. MRI of the region with and without contrast recommended to exclude a sarcoma or other soft tissue masses. Dictated by: Dictated on workstation # [id number]
== END ==
LOC: RAD 10:30
PROVIDERS: ATTEND Nurse Practitioner Family
DX: R22.41 Localized swelling, mass and lump, right lower limb (principal)
CPT/HCPCS: 76881

== ENCOUNTER → 2022-02-14 | Outpatient (CLI) | payer BC ==
[~2022-02-14] MED LIST changes: +GADOTERATE 0.5 MMOL/ML (CLARISCAN) 15 ML VIAL IV ONE
--- NOTE | 2022-02-15 12:30 | Diagnostic Imaging Report ---
PROCEDURE: MRI left lower extremity with and without contrast. TECHNIQUE: Multiplanar, multisequence pre and post contrast-enhanced MRI of the left lower extremity was accomplished. INDICATION: Localized swelling, mass or lump in the right lower limb, increasing in size. COMPARISON: Ultrasound from 01/26/2022. FINDINGS: There is a large mass in the region of the biceps femoris musculature, measuring up to 7.6 x 4.5 cm in greatest axial dimensions, and 18.5 cm craniocaudal. It is unclear if this is intramuscular or intermuscular. This could potentially originate from within the lateral distal aspect of the adductor melody muscle or from the short head of the biceps femoris muscle. There is mass effect on the surrounding musculature and mild medial displacement of the neurovascular bundle. The mass does abut the posterior cortex of the femur but there is no periosteal reaction or cortical erosion appreciated. This mass is T1 isointense to muscle and demonstrates enhancement throughout. There are some peripheral and septal hypointensities. The mass is heterogeneously hyperintense on T2-weighted imaging. No acute osseous abnormality is seen in the femur. No other enhancing masses or lesions are seen. There is no lymphadenopathy. There is no focal muscular atrophy. No soft tissue fluid collections are seen. IMPRESSION: 1. Large enhancing mass in the deep soft tissues of the posterolateral right thigh. 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 Recommend tissue sampling and consider surgical oncology consult. Dictated by: Dictated on workstation # [id number]
== END ==
LOC: RAD 16:15
PROVIDERS: ATTEND Nurse Practitioner Family
DX: R22.41 Localized swelling, mass and lump, right lower limb (principal)
CPT/HCPCS: 73720